=== PATIENT | female | born 1970 | race Caucasian/White ===

== ENCOUNTER → 2017-10-03 | Outpatient (CLI) | payer BC, OTHER | LOC: RAD 07:52 | DX: Z12.31 Encounter for screening mammogram for malignant neoplasm of breast (principal) ==

== ENCOUNTER → 2018-11-13 | Outpatient (CLI) | payer BC | LOC: RAD 12:49 | DX: Z12.31 Encounter for screening mammogram for malignant neoplasm of breast (principal) ==

== ENCOUNTER → 2018-11-19 | Outpatient (CLI) | payer BC | LOC: ULTRA 04:06 → RAD 04:06 → ULTRA 09:28 | DX: N60.01 Solitary cyst of right breast (principal); N60.02 Solitary cyst of left breast ==

== ENCOUNTER → 2020-06-27 | Outpatient (CLI) | payer OTHER | LOC: LAB 09:17 | PROVIDERS: ATTEND Family Medicine | DX: U07.1 COVID-19 (principal) ==